=== PATIENT | male | born 1975 ===

== ENCOUNTER 2022-07-03 13:10 | Emergency (ER) | payer OTHER ==
[~2022-07-03] VITALS: Ht 190.5 cm; Wt 95.2 kg
[2022-07-03] MEDS ORDERED: CYCL10 PO (13:42)
== END 2022-07-03 14:01 | disposition home or self-care (01) ==
LOC: ER 13:10
DX: M54.50 Low back pain, unspecified (principal); G89.29 Other chronic pain
CPT/HCPCS: J1885